=== PATIENT | female | born 1955 | race Caucasian/White ===

== ENCOUNTER 2020-07-28 14:00 | Outpatient (RCR) | payer MEDICARE, SELFPAY ==
[2020-06-04 12:59] VITALS: BMI 63.2
[2020-07-28 14:03] VITALS: BMI 63.2
== END 2020-08-03 11:27 | disposition home or self-care (01) ==
LOC: ANHDMC 14:00
PROVIDERS: PCP Physician Assistant; Visit Provider Physician Assistant
DX: E11.65 Type 2 diabetes mellitus with hyperglycemia (principal); R63.5 Abnormal weight gain; Z71.89 Other specified counseling; Z71.3 Dietary counseling and surveillance
CPT/HCPCS: 97802; 97803; G0108

== ENCOUNTER 2020-11-02 09:00 | Outpatient (RCR) | payer MEDICARE, SELFPAY | END 2020-11-23 14:50 | disposition home or self-care (01) | LOC: ANHDMC 09:00 | PROVIDERS: PCP Physician Assistant; Visit Provider Physician Assistant | DX: E11.65 Type 2 diabetes mellitus with hyperglycemia (principal); R63.5 Abnormal weight gain; Z71.89 Other specified counseling | CPT/HCPCS: G0108 ==

== ENCOUNTER 2021-01-14 10:25 | Outpatient (RCR) | payer MEDICARE, SELFPAY | END 2021-01-14 11:40 | disposition home or self-care (01) | LOC: ANHDMC 10:25 | PROVIDERS: Visit Provider Physician Assistant | DX: E11.65 Type 2 diabetes mellitus with hyperglycemia (principal); Z71.89 Other specified counseling | CPT/HCPCS: G0108 ==